=== PATIENT | female | born 1950 | race Caucasian/White ===

== ENCOUNTER → 2023-10-31 11:52 | Outpatient (REF) | payer MEDICARE, SELFPAY | LOC: WDC 11:52 | PROVIDERS: ATTENDING PHYSICIAN Obstetrics & Gynecology Gynecology; FAMILY PHYSICIAN Internal Medicine | DX: Z12.31 Encounter for screening mammogram for malignant neoplasm of breast (principal) | CPT/HCPCS: 77063; 77067 ==

== ENCOUNTER → 2023-11-22 10:20 | Outpatient (REF) | payer MEDICARE, SELFPAY ==
[2023-11-22 11:23] LABS: ALT (SGPT) 58 U/L (0-35); AST (SGOT) 41 U/L (14-36); Albumin 4.2 g/dl (3.5-5.0); Alkaline Phosphatase 66 U/L (38-126); Direct Bilirubin 0.5 mg/dl (0.0-0.4); Total Bilirubin 0.7 mg/dl (0.2-1.3); Total Protein 6.9 g/dl (6.3-8.2)
== END ==
LOC: REG 10:20
PROVIDERS: ATTENDING PHYSICIAN Internal Medicine
DX: R79.89 Other specified abnormal findings of blood chemistry (principal)
CPT/HCPCS: 36415; 80076

== ENCOUNTER → 2024-08-29 08:13 | Outpatient (REF) | payer MEDICARE, SELFPAY ==
[2024-08-29 08:53] LABS: % Immature Granulocytes 0.3 % (0-0.5); % Lymphocytes 26.7 % (20.5-51.1); % Monocytes 7.3 % (1.7-9.3); % Neutrophils 59.7 % (42.2-75.2); Absolute Basophils 0.1 10^3/uL (0-0.2); Absolute Eosinophils 0.3 10^3/uL (0-0.7); Absolute Lymphocytes 1.5 10^3/uL (1.2-3.4); Absolute Monocytes 0.4 10^3/uL (0.1-0.6); Absolute Neutrophils 3.4 10^3/uL (1.4-6.5); Hematocrit 44.4 % (37.0-47.0); Mean Corp Hgb Conc. 33.8 g/dL (33.0-37.0); Mean Corpuscular Hgb 31.5 pg (27.0-31.0); Mean Corpuscular Volume 93.3 fL (81.0-99.0); Mean Platelet Volume 9.8 fL (7.4-10.4); Nucleated Red Blood Cells % 0 %; Platelet Count 236 10^3/uL (130-400); Red Blood Cell Count 4.76 10^6/uL (4.20-5.40); Red Cell Dist. Width 12.9 % (11.5-14.5); White Blood Cell Count 5.8 10^3/uL (4.8-10.8)
[2024-08-29 09:26] LABS: ALT (SGPT) 63 U/L (0-35); AST (SGOT) 44 U/L (14-36); Albumin 4.6 g/dl (3.5-5.0); Alkaline Phosphatase 69 U/L (38-126); Blood Urea Nitrogen 19 mg/dl (7-17); Calcium 9.8 mg/dl (8.4-10.2); Carbon Dioxide 28 mmol/L (22-30); Chloride 104 mmol/L (98-107); Glucose 92 mg/dl (70-99); HDL Cholesterol 59 mg/dl; LDL Cholesterol, Calculated 121 mg/dl; Potassium 4.3 mmol/L (3.5-5.1); Sodium 140 mmol/L (135-145); Total Bilirubin 0.8 mg/dl (0.2-1.3); Total Cholesterol 210 mg/dl (50-199); Total Protein 7.2 g/dl (6.3-8.2); Triglyceride 154 mg/dl (10-149); Very Low Density Lipoprotein 30 mg/dl (0-30); eGFR > 60.00
[2024-08-29 09:55] LABS: TSH Reflex To Free T4 2.23 uIU/ml (0.47-4.68)
== END ==
LOC: REG 08:13
PROVIDERS: ATTENDING PHYSICIAN Internal Medicine
DX: R79.89 Other specified abnormal findings of blood chemistry (principal); E78.00 Pure hypercholesterolemia, unspecified; E78.5 Hyperlipidemia, unspecified; Z83.49 Family history of other endocrine, nutritional and metabolic diseases
CPT/HCPCS: 36415; 80053; 80061; 84443; 85025

== ENCOUNTER 2024-09-06 10:59 | Emergency (ER) | payer MEDICARE, SELFPAY ==
[2024-09-06 11:01] VITALS: BP 165/90
--- NOTE | 2024-09-06 12:37 | ED.GENMED ---
History of Present Illness
General
Chief Complaint: Musculo-Skeletal Complaint
Source: patient
Exam Limitations: none
Time Seen by Provider: 09/06/24 11:46
Nursing documentation reviewed up to this point in time: agreed with
History of Present Illness
History of Present Illness:
73 y/o F with no sig pmh
here with knee pain 2 weeks ago while doing yoga and says that she has had pain with weight bearing and has been limping some, so she has been icing off and on
and then yesterday while at yoga she reinjured it while doing side lunges/stretches
felt something pop in the back of her knee
she has pain/swleling mostly posteriorly and in the hamstring
she feels pain with with walking
she took motrin last night and got a set of crutches
she is going to call ortho tomorrrow for an appointment
no numbness/tingling/weakness, calf swelling, chest pain, shortness of breath.
Past History
Past History
ED Past Medical History: None
ED Past Surgical History: Cholecystectomy
Social History
Tobacco: Non-smoker
Alcohol: None
Drug: None
Personal:
Review of Systems
Review of Systems
Allergies reviewed?: Yes
All Other Systems: Not applicable
Phy Exam
Physical Exam
Physical Exam:
GENERAL: Alert , in no apparent distress, comfortable at rest
HEAD: NCAT
CV: 2+ DP PULSES B/L
NEUROLOGICAL: Alert and oriented, no focal neuro deficits, , 5/5 strength, sensation intact, ambulation slight limp right leg
SKIN: Warm and dry,
MUSCULOSKELETAL
mild effusion righ tknee, no redness, no warmth, no bruising
some swelling posteriorly with some pain
full flexion and extension intact, neg ant/post drawer
symmetric minimal laxity with varus and valgus stress
no clicking
able to straight leg raise
no obvious hamstring defect
PSYCH: Normal and appropriate interaction.
Course
Orders/Labs/Results
Orders:
Orders
09/06/24 11:05
Knee, Right 4 or More Views [CR Knee- Right 4 Or More View*] Urgent
Comment:
Reason For Exam: injury
Vital Signs
Initial and Last Documented VS:
Initial Vital Signs
Temp Pulse Resp BP Pulse Ox
36.7 C 69 16 165/90 99
09/06/24 11:01 09/06/24 11:01 09/06/24 11:01 09/06/24 11:01 09/06/24 11:01
Last Documented Vital Signs
Temp Pulse Resp BP Pulse Ox
36.7 C 69 16 165/90 99
09/06/24 11:01 09/06/24 11:01 09/06/24 12:55 09/06/24 11:01 09/06/24 11:01
MDM/Problems Addressed
Differential Diagnosis Includes:
OA, joint effusion, knee sprian, hamstring strain
MDM/Problems Addressed:
73 y/o F with 2 weeks of knee pain, hamstring/posterior and reinjured it doing yoga yesterday; she has full ROM of the knee with a mild to mod effusion, and some pain with hamstring testing but no defect; xrays mild oa and effusion
she is weight bearing
i suspect strain
xrys indep reivewed;
going to have her follow up; she is a retired internal medicine physician here
i sent courtesy note to dr. rosario from ortho for f/u
knee immob/already has crttuches
*Critical Care Note
Total Time (30-74mins, 75-104mins- exclusive of procedures): Not Applicable
ED Attending Note
-
Portions of this chart may have been created with voice recognition software.� Occasional wrong word or��sound alike� substitutions may have occurred due to the inherent limitations of voice recognition software.
Discharge Plan
Departure
Patient Disposition: Home (Routine Discharge)
Date of Disposition: 09/06/24
Time of Disposition: 12:46
Patient with high blood pressure during this ER visit?: No
Discharge Problem:
Effusion of knee, Hamstring strain, Arthritis of knee
Instructions: Knee Sprain (DC)
Referrals:
Brie Augustine MD [Family Provider] -
Rikki Rosario MD [Active] - Follow up in 5-7 days (ortho)
Activity Restrictions/Additional Instructions:
YOUR XRAYS SHOWMILD ARTHRITIS IN YOUR MEDIAL COMPARTMENT AND SOME FLUID IN YOUR JOINT; THIS COULD BE A LIGAMENTOUS SPRAIN OR MENISCUS; YOUR HAMSTRING COULD BE PARTIALLY INJURED
TRY THE BRACE TO KEEP IT IMMOBILIZED
USE CRUTCHES TO HELP WITH WALKING
TYLENOL/MOTRIN FOR PAIN
FOLLOW UP WITH ORTHO
RETURN FOR: SEVERE PAIN, SEVERE SWELLING/INABILITY TO WALK, FEVER, REDNESS OR ANY CONCERNS.
Interventions
Interventions:
*Risk Screen - Suicide Last Done: 09/06/24 11:01
*General Assessment Last Done: 09/06/24 11:01
*Neglect/Abuse Screening Last Done: 09/06/24 11:01
ED- Fall Risk Assessment Last Done: 09/06/24 13:35
*ED COVID-19 Vaccine History Last Done: 09/06/24 12:55
*Nursing Disposition Last Done: 09/06/24 13:35
ED-Musculoskeletal Assessment Last Done: 09/06/24 12:54
Discharge Date and Time
Discharge Date/Time: 09/06/24 13:35
Print Language: ALGERIAN
== END 2024-09-06 13:35 | disposition home or self-care (01) ==
LOC: EMR 10:59
PROVIDERS: EMERGENCY PHYSICIAN Emergency Medicine; FAMILY PHYSICIAN Internal Medicine
DX: M25.461 Effusion, right knee (principal); S76.811A Strain of other specified muscles, fascia and tendons at thigh level, right thigh, initial encounter; X58.XXXA Exposure to other specified factors, initial encounter; Y93.42 Activity, yoga; M17.11 Unilateral primary osteoarthritis, right knee; Z90.49 Acquired absence of other specified parts of digestive tract; Z88.1 Allergy status to other antibiotic agents; Z88.2 Allergy status to sulfonamides
CPT/HCPCS: 99283; 29505; 73564

== ENCOUNTER → 2024-09-28 10:27 | Day surgery (SDC) | payer MEDICARE, SELFPAY ==
[2024-09-28 11:38] LABS: Hematocrit 42.5 % (37.0-47.0); Hemoglobin 14.6 g/dL (12.0-16.0); Mean Corp Hgb Conc. 34.4 g/dL (33.0-37.0); Mean Corpuscular Hgb 31.3 pg (27.0-31.0); Mean Platelet Volume 10.4 fL (7.4-10.4); Platelet Count 221 10^3/uL (130-400); Red Blood Cell Count 4.67 10^6/uL (4.20-5.40); Red Cell Dist. Width 12.6 % (11.5-14.5); White Blood Cell Count 5.9 10^3/uL (4.8-10.8)
== END ==
LOC: SDSPAT 10:27
PROVIDERS: ATTENDING PHYSICIAN Student in an Organized Health Care Education/Training Program; FAMILY PHYSICIAN Internal Medicine
DX: Z01.810 Encounter for preprocedural cardiovascular examination (principal); Z01.812 Encounter for preprocedural laboratory examination; R00.1 Bradycardia, unspecified; I45.10 Unspecified right bundle-branch block
CPT/HCPCS: 93005; 36415; 85027

== ENCOUNTER 2024-10-21 06:23 | Day surgery (SDC) | payer MEDICARE, SELFPAY ==
[2024-09-28 13:52] VITALS: BMI 23.4
--- NOTE | 2024-09-29 14:54 | PTCARENOTE ---
Abnormal EKG on 09/28/24. Dr. Sams aware. No intervention needed.
[2024-10-21] VITALS (8 sets, daily range): BP systolic 103–168; BP diastolic 65–84; BMI 23.4
[2024-10-21] MEDS: TYLENOL 1000 MG PO (13:10)
[2024-10-21] MEDS: NORMOSOL-R/PLASMALYTE-A 1000 IV (13:11)
[2024-10-21] MEDS: DILAUDID 0.25 MG IV (15:24)
--- NOTE | 2024-10-21 15:32 | W.IMMPOSTOP ---
Surgical Immed Post Op Note
-
Primary Surgeon: Clive Ocampo MD
Assisting Surgeon:
Pre-op Diagnosis: right knee medial meniscal tear
Post-op Diagnosis: right knee medial meniscal tear, osteoarthritis
Procedure Performed: arthroscopic right knee partial medial meniscectomy
Anesthesia Type: general
Specimen / Cultures: none
Estimated Blood Loss: 5mL
Complications: none apparent
Tourniquet time: 23 minutes
Operative Findings: complex medial meniscal posterior horn tear, grade 4 chondrosis of trochlea, medial femoral condyle
Operative dictation #: [id number]
[2024-10-21] MEDS: ZOFRAN 4 MG IV (15:45)
== END 2024-10-21 17:22 | disposition home or self-care (01) ==
LOC: SDS 06:23
PROVIDERS: ATTENDING PHYSICIAN Student in an Organized Health Care Education/Training Program
DX: S83.231A Complex tear of medial meniscus, current injury, right knee, initial encounter (principal); X58.XXXA Exposure to other specified factors, initial encounter; M17.11 Unilateral primary osteoarthritis, right knee
CPT/HCPCS: 29881

== ENCOUNTER → 2024-11-02 12:41 | Outpatient (REF) | payer MEDICARE, SELFPAY | LOC: HWRAD 12:41 | PROVIDERS: ATTENDING PHYSICIAN Internal Medicine; REFERRING PHYSICIAN Obstetrics & Gynecology Gynecology | DX: Z78.0 Asymptomatic menopausal state (principal) | CPT/HCPCS: 77080 ==

== ENCOUNTER → 2024-11-07 14:17 | Outpatient (REF) | payer MEDICARE, SELFPAY | LOC: WDC 14:17 | PROVIDERS: ATTENDING PHYSICIAN Obstetrics & Gynecology Gynecology; FAMILY PHYSICIAN Internal Medicine | DX: Z12.31 Encounter for screening mammogram for malignant neoplasm of breast (principal); Z12.39 Encounter for other screening for malignant neoplasm of breast | CPT/HCPCS: 77063; 77067 ==